=== PATIENT | female | born 1930 | race Caucasian/White ===

== ENCOUNTER 2017-05-20 16:09 | Emergency (ER) | payer MEDICARE, BC ==
--- NOTE | ~2017-05-20 | CT4 ---
[facility] A Service of [facility] RADIOLOGY TEXT RESULTS PATIENT: KWABENA AGUIRRE LOCATION: [facility] : 32 UNIT #: [id number] AGE: [address]: Mary Jane Lay MD SEX: F ORDER DR: [id number] [facility] [address] [place], [place] [address] [id number] MR#: [id number] Acc #: [id number] NAME: KWABENA AGUIRRE. : 1930 SEX: F STUDY DATE/TIME: 05/20/2017 18:09 UNIT: [facility] ROOM: STUDY DESCRIPTION: CT Abd and Pelv Wo Cont Attending Physician: Mary aJne Lay M.D. Ordering Physician: Mary Jane Lay M.D. Primary Care Physician: Suad White M.D. MEDICAL IMAGING REPORT This report is preliminary unless electronic signature is present EXAM CT abdomen and pelvis without contrast 05/20/2017 HISTORY 87-year-old female with left flank pain for 2 weeks. COMPARISON None. TECHNIQUE Helical scan performed through the abdomen and pelvis without IV contrast. Coronal and sagittal reformatted images. This CT exam was performed with one or more of the following radiation dose reduction techniques: automatic control, adjustment of mA and/or kV according to patient size, and iterative reconstruction. FINDINGS Visualized lung bases are unremarkable. The liver, spleen, pancreas, and both adrenal glands are within normal limits. Gallbladder is surgically absent. Right renal cyst. No urinary tract stones or hydronephrosis. Abdominal aorta normal in course and caliber with scattered atherosclerotic calcification. Small bowel is unremarkable without obstruction. Appendix surgically absent. Uncomplicated descending and sigmoid colonic diverticulosis. No free fluid or free air. Urinary bladder, uterus, and adnexa are unremarkable. No free pelvic fluid. No acute bony abnormality. Postsurgical changes of the lumbar spine and left hip. IMPRESSION [facility] A Service of [facility] RADIOLOGY TEXT RESULTS PATIENT: KWABENA AGUIRRE LOCATION: [facility] : 32 UNIT #: [id number] AGE: [address]: Mary Jane Lay MD SEX: F ORDER DR: 1. No acute abdominal or pelvic findings. 2. Negative for urinary tract stones or hydronephrosis. 3. Cholecystectomy and appendectomy. 4. Uncomplicated descending and sigmoid colonic diverticulosis. 5. Postsurgical changes from a lumbar fusion and left hip ORIF. Dictated by... Chuck Blanton M.D. THIS IS AN ELECTRONICALLY VERIFIED REPORT Chuck Blanton M.D. at 05/21/2017 3:58 PM JUAN/sharri TD: 05/21/2017 05:00 JOB #: [id number] MEDICAL IMAGING REPORT Page 1 of 1 COPY
[~2017-05-20 16:09] MED LIST: ARICEPT PO; CALCIUM 500 +1 EAC2; CALCIUM 600 + D1 TA1 PO; COMPAZINE10 MG PO; DIOVAN PO; FOSAMAX PO; HUMIBID PO; KLONOPIN PO; LEVAQUIN PO; LORTAB 10-3251 EACH PO; MAXZIDE 75/50 T1 TA1 PO; MAXZIDE 75/50 T1 TAB PO; MULTI-VITAMIN1 TAB PO; NEURONTIN100 MG PO; OSCAL PO; PARAFON FORTE500 M1 PO; PRILOSEC PO; PROZAC PO; VESICARE PO; VICODIN 5/500 T1 TAB PO; ZOCOR PO
[2017-05-20 17:00] LABS: URINE SOURCE CLEAN CATCH
[2017-05-20 17:17] LABS: URINE APPEARANCE CLEAR; URINE BILIRUBIN NEG (NEG); URINE BLOOD NEG (NEG); URINE COLOR YELLOW; URINE GLUCOSE NEG (NEG); URINE KETONE NEG (NEG); URINE LEUKOCYTE ESTERASE NEG (NEG); URINE NITRATE NEG (NEG); URINE PH 5.5 (5-8); URINE PROTEIN NEG (NEG); URINE UROBILINOGEN 0.2 MG/DL (NEG)
[2017-05-20 17:23] LABS: CULTURE INDICATED? NO
[2017-07-28] MEDS ORDERED: LASIX20 MG PO (09:27)
[2017-07-28] MEDS ORDERED: DIOVAN80 M1 PO (09:28)
[2017-07-28] MEDS ORDERED: HYDRALAZINE HCL25 MG PO (09:28)
[2017-07-28] MEDS ORDERED: POTASSIUM CHLO10 ME1 PO (09:29)
[2017-07-30] MEDS ORDERED: NON-ASPIRIN PA500 M2 PO (09:41)
[2017-07-30] MEDS ORDERED: PROTONIX PO (09:42)
== END 2017-05-20 19:31 | disposition home or self-care (01) ==
LOC: CED 16:09
PROVIDERS: Student in an Organized Health Care Education/Training Program
DX: M25.552 Pain in left hip (principal); M54.5 Low back pain; Z88.8 Allergy status to other drugs, medicaments and biological substances; Z88.2 Allergy status to sulfonamides; Z79.899 Other long term (current) drug therapy
CPT/HCPCS: 74176; 81003; 99284